=== PATIENT | male | born 1965 | race Caucasian/White ===

== ENCOUNTER 2022-12-02 10:08 | Emergency (ER) | payer BC ==
[~2022-12-02] VITALS: Ht 177.8 cm; Wt 93.4 kg
[2022-12-02 10:12] VITALS: BP 180/113
[2022-12-02] MEDS ORDERED: HYDR1TAB94 PO (13:06)
== END 2022-12-02 13:27 | disposition home or self-care (01) ==
LOC: ER 10:08
DX: S41.112A Laceration without foreign body of left upper arm, initial encounter (principal); W27.4XXA Contact with kitchen utensil, initial encounter; Z91.041 Radiographic dye allergy status
CPT/HCPCS: 12002; 90471; 90715; 99283-25